=== PATIENT | female | born 1975 | race Caucasian/White ===

== ENCOUNTER 2025-04-11 11:45 | Outpatient (AMB) | payer MEDICARE, MEDICAID, SELFPAY ==
--- NOTE | 2025-04-11 11:47 | MHC.OFFVIS ---
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 She has a history of cervical radiculitis in the C7 distribution, with an MRI showing moderate cervical spinal stenosis at C6-7. She also experiences thoracic pain originating from the lower thoracic area, radiating around the front of the chest, and has a T11 left paracentral disc herniation confirmed by MRI. The patient reports that her thoracic pain worsened in September while chopping ice, which she attributes to a physical strain during a storm cleanup. She describes the pain as feeling like a belt around her ribs, and it is exacerbated by physical activity. She has a history of sciatica following a lumbar injection, which now causes pain radiating down the back of her leg. Additionally, she has been diagnosed with noncancerous vertebral tumors, which she associates with long-term use of Depo-Provera. The patient has been off her pain medication since April due to a positive drug test for cocaine exposure, which she disputes as accidental. She has been experiencing significant pain and has been seeking alternative therapies such as red light therapy and acupuncture. Pain Description - Onset: Pain worsened in September during physical activity (chopping ice) - Quality: Described as a belt around the ribs - Location: Originates from the lower thoracic area, radiates around the front of the chest - Exacerbating factors: Physical activity - Interference: Affects daily activities and social interactions Physical Exam - Appears afebrile. - Alert and oriented. - Mood and affect depressed. - Follows and participates in conversation appropriately. Results - MRI of the cervical spine: Moderate cervical spinal stenosis at C6-7 - MRI of the thoracic spine: T10/11 disc herniation Pain Management - Affect: Pain significantly impacts mood and social interactions, leading to isolation - Analgesia: Off pain medication since April, seeking alternative therapies - Adverse Effects: None reported from current therapies - Activities of Daily Living: Pain interferes with daily activities and social interactions - Aberrant Drug Related Behaviors: Positive drug test for cocaine exposure, disputed as accidental [facility] Medical History (Updated 03/24/25 @ 14:28 by Alix Cosme LPN) Radiculopathy, lumbar region Radiculopathy, cervical region Unspecified thoracic, thoracolumbar and lumbosacral intervertebral disc disorder Radiculopathy, thoracic region Physical Exam Vital Signs: Last Vital Signs Pulse 53 04/11/25 11:48 Resp 16 04/11/25 11:48 BP 135/65 04/11/25 11:48 Pulse Ox 97 04/11/25 11:48 Oxygen Delivery Method Room Air 04/11/25 11:48 BMI result Body Mass Index 31.0 Assessment & Plan Assessment & Plan (1) Radiculopathy, thoracic region: Code(s): M54.14 - Radiculopathy, thoracic region Category: Medical Plan Plan - Plan to perform a T10-11 left parasagittal interlaminar epidural steroid injection for thoracic radiculopathy, pending insurance authorization. - Discussed the need for insurance authorization and the process for scheduling the procedure once approved. Patient was informed and verbally consented to the use of an ambient scribe for clinic note documentation during this visit. Discussion Notes I discussed with the patient the plan to perform a T10-11 left parasagittal interlaminar epidural steroid injection for thoracic radiculopathy, emphasizing the need for insurance authorization before proceeding. We reviewed the process for obtaining authorization and scheduling the procedure once approved. The patient expressed understanding and willingness to proceed with the plan. Patient Instructions - Await contact from the office regarding insurance authorization and scheduling of the epidural injection. - Continue current alternative therapies such as red light therapy and acupuncture. Coding Level of Care Code New Pt Level 4 (50251) Diagnoses Radiculopathy, thoracic region M54.14
[2025-04-11 11:48] VITALS: BP 135/65; PULSE 53; RESP 16; O2SAT 97; BMI 31.0
== END 2025-04-11 12:52 | disposition home or self-care (01) ==
LOC: HO.PMC 11:46
PROVIDERS: PCP Student in an Organized Health Care Education/Training Program; Visit Provider Internal Medicine
DX: M54.14 Radiculopathy, thoracic region (principal)
CPT/HCPCS: 99204

== ENCOUNTER → 2025-04-11 11:45 | Outpatient (BNVA) | payer MEDICARE, MEDICAID, SELFPAY | PROVIDERS: PCP Student in an Organized Health Care Education/Training Program; Visit Provider Internal Medicine | DX: M54.14 Radiculopathy, thoracic region (principal) | CPT/HCPCS: 99202 ==

== ENCOUNTER 2025-05-12 06:34 | Outpatient (REF) | payer MEDICARE, MEDICAID, SELFPAY | END 2025-05-12 06:35 | disposition home or self-care (01) | LOC: CF 06:34 | PROVIDERS: Visit Provider Internal Medicine | DX: Z13.89 Encounter for screening for other disorder (principal) ==